=== PATIENT | female | born 1930 | race Caucasian/White ===

== ENCOUNTER → 2018-11-19 | Outpatient (CLI) | payer MEDICARE, OTHER ==
[2014-10-04 17:11] VITALS: BMI 20.7
[~2018-11-19] MED LIST: ALE70 PO; ATR80PT PO; CALC1TAB32 PO; CALC500T42 PO; CHOL100058 PO; DONE5TAB74 PO; ENA5 PO; FISH OIL1 CAP PO; IRB150 PO; LOR5/325 PO; LOSA100T68 PO; MEMA28CA PO; MEMA5TAB14 PO; METH4TAB66 PO; MIRT-1 PO; MIRT-17 PO; MIRT-22 PO; MULT-145 PO; MULT-865 PO; PER PO; QUET25TA30 PO; SERT25TA90 PO; SIMV-44 PO; [UNRECOGNIZED DRUG - CODE] PO
[2018-11-19 11:16] LABS: PLATELET COUNT, AUTOMATED 225 K/uL (150-450)
== END ==
LOC: LAB 11:00
PROVIDERS: ATTEND Family Medicine
DX: E55.9 Vitamin D deficiency, unspecified (principal); Z81.8 Family history of other mental and behavioral disorders; I10 Essential (primary) hypertension
CPT/HCPCS: 36415; 82040; 82247; 82306; 82310; 82374; 82435; 82565; 82947; 84075; 84132; 84155; 84295; 84443; 84450; 84460; 84520; 85025